=== PATIENT | female | born 1975 | race Caucasian/White ===

== ENCOUNTER → 2020-10-26 | Outpatient (CLI) | payer OTHER | LOC: M.MRI 07:54 | PROVIDERS: ATTEND Specialist | DX: S43.401A Unspecified sprain of right shoulder joint, initial encounter (principal); G89.29 Other chronic pain; X58.XXXA Exposure to other specified factors, initial encounter; Y93.89 Activity, other specified; Y92.89 Other specified places as the place of occurrence of the external cause; Y99.8 Other external cause status ==